=== PATIENT | male | born 1960 | race Caucasian/White ===

== ENCOUNTER 2017-12-30 05:30 | Emergency (ER) | payer OTHER ==
[~2017-12-30] VITALS: Ht 170.2 cm; Wt 90.7 kg
[2017-12-30 05:40] VITALS: Ht 170.2 cm; Wt 90.7 kg
[2017-12-30 07:33] VITALS: BP 125/64
== END 2017-12-30 07:34 | disposition home or self-care (01) ==
LOC: ED 05:30
DX: F41.9 Anxiety disorder, unspecified (principal); R54 Age-related physical debility; G89.29 Other chronic pain; E11.9 Type 2 diabetes mellitus without complications
CPT/HCPCS: J2060